=== PATIENT | male | born 1955 | race Caucasian/White ===

== ENCOUNTER 2020-07-31 22:28 | Inpatient (IN) ==
[2020-07-31] MEDS ORDERED: Dextrose Gel 15 GM/37.5 ML TUBE PO PRN ×2 (22:41)
[2020-07-31] MEDS ORDERED: *HR* Dextrose 50 % in Water (Vial) 50 ML VIAL IVP PRN (22:41)
[2020-07-31] MEDS ORDERED: D5% in Water 1,000 ML IVC PRN (22:41)
[2020-08-01] MEDS: *HR* OxyCODONE Immed Rel 5 MG TABLET PO SCH ×4 (05:04→21:09)
[2020-08-01] MEDS ORDERED: *HR* OxyCODONE Immed Rel 5 MG TABLET PO SCH (06:00)
[2020-08-01] MEDS: lisinopriL 5 MG TABLET PO SCH (09:31)
[2020-08-01] MEDS: BuPROPion XL (24 HR) 150 MG TABLET PO SCH (09:31)
[2020-08-01] MEDS: *HR* Pioglitazone 30 MG TABLET PO SCH (09:31)
[2020-08-01] MEDS: Lactulose Oral Soln 20 GM/30 ML UDC PO SCH ×2 (09:31→11:31)
[2020-08-01] MEDS: FLUoxetine 20 MG CAPSULE PO SCH (09:31)
[2020-08-01] MEDS: *HR* Glimepiride 2 MG TABLET PO SCH ×2 (09:31→11:49)
[2020-08-01] MEDS: Pregabalin 50 MG CAPSULE PO SCH ×3 (10:33→21:09)
[2020-08-01 12:22] LABS: Hematocrit 44.6 % (37.5-50.1); Hemoglobin 14.9 g/dL (12.9-16.9); Mean Corpuscular HGB Conc 33.4 g/dL (31.6-35.5); Mean Corpuscular Volume 95.9 fL (83.0-100.0); Mean Platelet Volume 10.4 fL (9.4-12.4); Platelet Count 102 K/mcL (140-400); Red Blood Count 4.65 M/mcL (4.19-5.50); Red Cell Distribution Width 13.6 % (11.5-14.5); White Blood Count 3.6 K/mcL (4.3-11.1)
[2020-08-01 12:38] LABS: Calcium 8.3 mg/dL (8.6-10.3); Magnesium 1.8 mg/dL (1.6-2.6); Potassium 4.7 mEq/L (3.5-5.1)
[2020-08-01] MEDS ORDERED: 0.9 % Sodium Chloride 1,000 ML IVC SCH (14:00)
[2020-08-01] MEDS: Ondansetron ODT 4 MG TAB.RAPDIS SL PRN (17:32)
[2020-08-02] MEDS: *HR* OxyCODONE Immed Rel 5 MG TABLET PO SCH ×4 (05:28→21:30)
[2020-08-02] MEDS: *HR* Enoxaparin 40 MG/0.4 ML SYRINGE SQ SCH (05:28)
[2020-08-02 06:31] LABS: Calcium 8.1 mg/dL (8.6-10.3); Potassium 4.2 mEq/L (3.5-5.1)
[2020-08-02] MEDS: FLUoxetine 20 MG CAPSULE PO SCH (09:09)
[2020-08-02] MEDS: lisinopriL 5 MG TABLET PO SCH (09:09)
[2020-08-02] MEDS: BuPROPion XL (24 HR) 150 MG TABLET PO SCH (09:09)
[2020-08-02] MEDS: *HR* Pioglitazone 30 MG TABLET PO SCH (09:11)
[2020-08-02] MEDS: Lactulose Oral Soln 20 GM/30 ML UDC PO SCH ×2 (09:12→12:26)
[2020-08-02] MEDS: Pregabalin 50 MG CAPSULE PO SCH ×3 (09:17→21:30)
[2020-08-02] MEDS: *HR* Glimepiride 2 MG TABLET PO SCH ×2 (09:17→12:26)
[2020-08-02] MEDS ORDERED: 0.9 % Sodium Chloride 1,000 ML IVC SCH (13:00)
[2020-08-03] MEDS: *HR* Enoxaparin 40 MG/0.4 ML SYRINGE SQ SCH (04:12)
[2020-08-03] MEDS: *HR* OxyCODONE Immed Rel 5 MG TABLET PO SCH ×5 (04:13→20:16)
[2020-08-03 05:42] LABS: Basophils % 0.5 %; Eosinophils % 0.7 %; Hematocrit 43.7 % (37.5-50.1); Hemoglobin 14.4 g/dL (12.9-16.9); Immature Granulocytes % 1.2 % (0-4); Lymphocytes # 1.5 K/mcL (0.6-4.6); Lymphocytes % 37.6 %; Mean Corpuscular Hemoglobin 31.4 pg (28.0-33.3); Mean Corpuscular Volume 95.2 fL (83.0-100.0); Mean Platelet Volume 11.1 fL (9.4-12.4); Monocytes # 0.5 K/mcL (0.0-1.3); Monocytes % 11.3 %; Platelet Count 101 K/mcL (140-400); Red Blood Count 4.59 M/mcL (4.19-5.50); Red Cell Distribution Width 13.5 % (11.5-14.5); Segmented Neutrophils % 48.7 %; White Blood Count 4.1 K/mcL (4.3-11.1)
[2020-08-03 06:00] LABS: Albumin 3.3 g/dL (3.5-5.7); Albumin/Globulin Ratio 1.1 (1.1-2.2); Bilirubin,Total 0.5 mg/dL (0.3-1.0); Calcium 7.8 mg/dL (8.6-10.3); Globulin 2.9 g/dL (2.4-3.5); Potassium 4.7 mEq/L (3.5-5.1); Total Protein 6.2 g/dL (6.4-8.9)
[2020-08-03] MEDS: *HR* Glimepiride 2 MG TABLET PO SCH ×2 (09:35→12:35)
[2020-08-03] MEDS: Lactulose Oral Soln 20 GM/30 ML UDC PO SCH ×2 (09:37→12:35)
[2020-08-03] MEDS: BuPROPion XL (24 HR) 150 MG TABLET PO SCH (09:38)
[2020-08-03] MEDS: lisinopriL 5 MG TABLET PO SCH (09:38)
[2020-08-03] MEDS: FLUoxetine 20 MG CAPSULE PO SCH (09:38)
[2020-08-03] MEDS: Pregabalin 50 MG CAPSULE PO SCH ×4 (09:38→20:16)
[2020-08-03] MEDS: *HR* Pioglitazone 30 MG TABLET PO SCH (09:39)
[2020-08-03 13:43] LABS: ABG Base Excess -1 mEq/L (-2 to 3); ABG HCO3 24 mEq/L (21-27); ABG Oxygen Saturation 94 % (95-98); ABG PCO2 41 mmHg (35-45); ABG PH 7.37 pH Units (7.32-7.45); ABG PO2 72 mmHg (85-104); ABG TCO2 25 mEq/L (20-26)
[2020-08-03] MEDS: 0.9 % Sodium Chloride 1,000 ML IVC SCH (21:25)
[2020-08-03 22:26] LABS: Bilirubin,Urine Negative (Negative); Blood,Urine Trace-intact (Negative); Clarity,Urine Slightly Cloudy (Clear); Glucose,Urine (UA) Normal (Normal); Ketones,Urine Negative (Negative); Leukocyte Esterase,Urine Negative (Negative); Nitrite,Urine Negative (Negative); PH,Urine 5.5 pH Units (5.0-8.0); Protein,Urine 100 mg/dL (Neg-Trace); Specific Gravity,Urine 1.025 (1.010-1.025); Urobilinogen,Urine >=8.0 mg/dL (Normal)
[2020-08-03 22:45] LABS: Color,Urine Yellow (Yellow); RBC,Urine 0-3 per hpf (0-3)
[2020-08-03 22:46] LABS: Amorphous Sediment,Urine Few per hpf (None-Few); Hyaline Casts,Urine Few per lpf (None Seen)
[2020-08-04] MEDS: Acetaminophen 325 MG TABLET PO PRN (00:24)
[2020-08-04] MEDS: *HR* Enoxaparin 40 MG/0.4 ML SYRINGE SQ SCH (04:26)
[2020-08-04] MEDS: *HR* OxyCODONE Immed Rel 5 MG TABLET PO SCH ×3 (04:29→11:55)
[2020-08-04 05:45] LABS: Basophils % 0.3 %; Eosinophils % 0.6 %; Hematocrit 42.5 % (37.5-50.1); Hemoglobin 13.9 g/dL (12.9-16.9); Immature Granulocytes % 1.4 % (0-4); Lymphocytes # 1.3 K/mcL (0.6-4.6); Lymphocytes % 36.6 %; Mean Corpuscular HGB Conc 32.7 g/dL (31.6-35.5); Mean Corpuscular Hemoglobin 31.3 pg (28.0-33.3); Mean Corpuscular Volume 95.7 fL (83.0-100.0); Mean Platelet Volume 11.3 fL (9.4-12.4); Monocytes # 0.4 K/mcL (0.0-1.3); Monocytes % 9.6 %; Neutrophils # 1.9 K/mcL (1.6-8.9); Red Blood Count 4.44 M/mcL (4.19-5.50); Red Cell Distribution Width 13.4 % (11.5-14.5); Segmented Neutrophils % 51.5 %; White Blood Count 3.6 K/mcL (4.3-11.1)
[2020-08-04 05:46] LABS: Platelet Count 99 K/mcL (140-400)
[2020-08-04 05:57] LABS: BUN/Creatinine Ratio 20 (6-26); Blood Urea Nitrogen 28 mg/dL (8-23); Calcium 8.1 mg/dL (8.6-10.3); Carbon Dioxide 25 mEq/L (23-29); Chloride 106 mEq/L (98-107); Glucose 125 mg/dL (70-105); Osmolality,Calculated 295 (280-300); Potassium 4.5 mEq/L (3.5-5.1); Sodium 139 mEq/L (136-145); eGFR For African Americans > 60 (> 60); eGFR For Non-African Americans 50 (> 60)
[2020-08-04] MEDS: Lactulose Oral Soln 20 GM/30 ML UDC PO SCH ×2 (07:54→11:54)
[2020-08-04] MEDS: *HR* Pioglitazone 30 MG TABLET PO SCH (07:55)
[2020-08-04] MEDS: FLUoxetine 20 MG CAPSULE PO SCH (07:55)
[2020-08-04] MEDS: BuPROPion XL (24 HR) 150 MG TABLET PO SCH (07:55)
[2020-08-04] MEDS: *HR* Glimepiride 2 MG TABLET PO SCH ×2 (07:55→12:13)
[2020-08-04] MEDS: lisinopriL 5 MG TABLET PO SCH (07:55)
[2020-08-04] MEDS: Pregabalin 50 MG CAPSULE PO SCH ×3 (08:05→20:02)
[2020-08-04] MEDS: 0.9 % Sodium Chloride 1,000 ML IVC SCH (09:59)
[2020-08-04] MEDS ORDERED: *HR* OxyCODONE Immed Rel 5 MG TABLET PO PRN (14:43)
[2020-08-05] MEDS: *HR* Enoxaparin 40 MG/0.4 ML SYRINGE SQ SCH (04:24)
[2020-08-05] MEDS: *HR* Glimepiride 2 MG TABLET PO SCH ×2 (08:22→12:30)
[2020-08-05] MEDS: lisinopriL 5 MG TABLET PO SCH (08:22)
[2020-08-05] MEDS: *HR* Pioglitazone 30 MG TABLET PO SCH (08:23)
[2020-08-05] MEDS: BuPROPion XL (24 HR) 150 MG TABLET PO SCH (08:23)
[2020-08-05] MEDS: Lactulose Oral Soln 20 GM/30 ML UDC PO SCH ×2 (08:23→12:31)
[2020-08-05] MEDS: FLUoxetine 20 MG CAPSULE PO SCH (08:23)
[2020-08-05] MEDS: Pregabalin 50 MG CAPSULE PO SCH ×3 (08:26→21:11)
[2020-08-06] MEDS: *HR* Enoxaparin 40 MG/0.4 ML SYRINGE SQ SCH (06:14)
[2020-08-06] MEDS: BuPROPion XL (24 HR) 150 MG TABLET PO SCH (10:09)
[2020-08-06] MEDS: *HR* Pioglitazone 30 MG TABLET PO SCH (10:09)
[2020-08-06] MEDS: lisinopriL 5 MG TABLET PO SCH (10:09)
[2020-08-06] MEDS: FLUoxetine 20 MG CAPSULE PO SCH (10:10)
[2020-08-06] MEDS: *HR* Glimepiride 2 MG TABLET PO SCH ×2 (10:10→12:10)
[2020-08-06] MEDS: Lactulose Oral Soln 20 GM/30 ML UDC PO SCH ×2 (10:13→12:11)
[2020-08-06] MEDS: Pregabalin 50 MG CAPSULE PO SCH ×3 (10:16→19:57)
[2020-08-06 11:41] LABS: Basophils % 0.4 %; Hemoglobin 15.8 g/dL (12.9-16.9); Immature Granulocytes % 0.8 % (0-4); Lymphocytes # 1.2 K/mcL (0.6-4.6); Lymphocytes % 24.9 %; Mean Corpuscular HGB Conc 34.3 g/dL (31.6-35.5); Mean Corpuscular Hemoglobin 31.8 pg (28.0-33.3); Mean Corpuscular Volume 92.6 fL (83.0-100.0); Mean Platelet Volume 11.1 fL (9.4-12.4); Monocytes # 0.5 K/mcL (0.0-1.3); Monocytes % 10.4 %; Neutrophils # 3.1 K/mcL (1.6-8.9); Platelet Count 135 K/mcL (140-400); Red Blood Count 4.97 M/mcL (4.19-5.50); Segmented Neutrophils % 63.5 %; White Blood Count 4.8 K/mcL (4.3-11.1)
[2020-08-06 11:53] LABS: Alanine Aminotransferase 18 Units/L (7-52); Albumin 3.5 g/dL (3.5-5.7); Albumin/Globulin Ratio 1.1 (1.1-2.2); Alkaline Phosphatase 78 Units/L (34-104); Aspartate Amino Transferase 35 Units/L (13-39); BUN/Creatinine Ratio 15 (6-26); Bilirubin,Total 0.7 mg/dL (0.3-1.0); Blood Urea Nitrogen 20 mg/dL (8-23); Calcium 8.5 mg/dL (8.6-10.3); Carbon Dioxide 26 mEq/L (23-29); Chloride 101 mEq/L (98-107); Globulin 3.3 g/dL (2.4-3.5); Glucose 76 mg/dL (70-105); Osmolality,Calculated 283 (280-300); Sodium 136 mEq/L (136-145); Total Protein 6.8 g/dL (6.4-8.9); eGFR For African Americans > 60 (> 60); eGFR For Non-African Americans 54 (> 60)
[2020-08-07] MEDS: *HR* Enoxaparin 40 MG/0.4 ML SYRINGE SQ SCH (04:32)
[2020-08-07] MEDS ORDERED: *HR* Glimepiride 2 MG TABLET PO SCH (09:00)
[2020-08-07] MEDS: Lactulose Oral Soln 20 GM/30 ML UDC PO SCH (09:18)
[2020-08-07] MEDS: *HR* Pioglitazone 30 MG TABLET PO SCH (09:20)
[2020-08-07] MEDS ORDERED: Dextrose Gel 15 GM/37.5 ML TUBE PO PRN ×2 (09:22)
[2020-08-07] MEDS ORDERED: *HR* Dextrose 50 % in Water (Vial) 50 ML VIAL IVP PRN (09:22)
[2020-08-07] MEDS ORDERED: D5% in Water 1,000 ML IVC PRN (09:22)
[2020-08-07] MEDS: *HR* Glimepiride 2 MG TABLET PO SCH (09:32)
[2020-08-07] MEDS: Pregabalin 50 MG CAPSULE PO SCH ×3 (09:34→19:43)
[2020-08-07] MEDS: FLUoxetine 20 MG CAPSULE PO SCH (09:34)
[2020-08-07] MEDS: BuPROPion XL (24 HR) 150 MG TABLET PO SCH (09:34)
[2020-08-07] MEDS: lisinopriL 5 MG TABLET PO SCH (09:34)
[2020-08-07] MEDS: Insulin LISPRO 300 UNITS/3 ML VIAL SQ SCH ×2 (12:00→17:24)
[2020-08-07] MEDS: Acetaminophen 325 MG TABLET PO PRN (21:19)
[2020-08-08] MEDS: *HR* Enoxaparin 40 MG/0.4 ML SYRINGE SQ SCH (03:58)
[2020-08-08] MEDS: Insulin LISPRO 300 UNITS/3 ML VIAL SQ SCH ×5 (03:58→20:35)
[2020-08-08] MEDS: Lactulose Oral Soln 20 GM/30 ML UDC PO SCH ×3 (08:27→15:36)
[2020-08-08] MEDS: lisinopriL 5 MG TABLET PO SCH (08:27)
[2020-08-08] MEDS: FLUoxetine 20 MG CAPSULE PO SCH (08:27)
[2020-08-08] MEDS: BuPROPion XL (24 HR) 150 MG TABLET PO SCH (08:27)
[2020-08-08] MEDS: Pregabalin 50 MG CAPSULE PO SCH ×3 (09:00→19:30)
[2020-08-08] MEDS: Acetaminophen 325 MG TABLET PO PRN (16:13)
[2020-08-09] MEDS: *HR* Enoxaparin 40 MG/0.4 ML SYRINGE SQ SCH (05:01)
[2020-08-09] MEDS: Acetaminophen 325 MG TABLET PO PRN (05:39)
[2020-08-09 07:18] VITALS: BP 139/76
[2020-08-09] MEDS: FLUoxetine 20 MG CAPSULE PO SCH (08:11)
[2020-08-09] MEDS: BuPROPion XL (24 HR) 150 MG TABLET PO SCH (08:11)
[2020-08-09] MEDS: Pregabalin 50 MG CAPSULE PO SCH (08:11)
[2020-08-09] MEDS: Lactulose Oral Soln 20 GM/30 ML UDC PO SCH (08:12)
[2020-08-09] MEDS: lisinopriL 5 MG TABLET PO SCH (08:12)
[2020-08-09] MEDS: Insulin LISPRO 300 UNITS/3 ML VIAL SQ SCH (08:39)
[2020-08-09] MEDS: Ondansetron ODT 4 MG TAB.RAPDIS SL PRN (11:27)
== END 2020-08-09 11:40 | disposition left against medical advice (07) | DRG 178 ==
LOC: INPGRE 08-01 01:05
PROVIDERS: ADMIT Family Medicine; ATTEND Family Medicine